=== PATIENT | male | born 1965 | race Caucasian/White ===

== ENCOUNTER 2023-02-02 09:24 | Outpatient (CLI) | payer MEDICARE, MEDICAID, SELFPAY ==
--- NOTE | 2023-02-02 10:03 | FL_ITS ---
WS: [id number] Modified barium swallow, 02/02/2023 Clinical Data: Pharyngeal dysphagia Comparison: None. Fluoroscopy time: 2min [id number] # of spot films: Findings: The patient required increased oral preparation time in order to propel the material into the hypopha rynx. There was premature spillage. There is also vallecular pooling which cleared with multiple swal lows. There is no aspiration or penetration. The patient ingested the barium tablet tablet and it mov ed normally into the oral pharynx, hypopharynx, esophagus and stomach FL/FL barium swallow [id number] Impression: 1. Increased oral preparation time to propel material in the hypopharynx 2. Premature spillage with vallecular pooling that cleared with swallowing. 3. Negative for aspiration or penetration.
== END 2023-02-02 09:25 | disposition home or self-care (01) ==
PROVIDERS: Visit Provider Allergy & Immunology
DX: R13.13 Dysphagia, pharyngeal phase (principal)
CPT/HCPCS: 74230; 92611